=== PATIENT | female | born 2000 | race Caucasian/White ===

== ENCOUNTER 2019-06-11 23:58 | Emergency (ER) | payer OTHER ==
[2019-06-12 00:18] VITALS: BP 131/80; PULSE 52; TEMP 98.2; BMI 18.8
--- NOTE | 2019-06-12 00:37 | PDOC ---
History of Present Illness - General Chief Complaint: Injury Stated Complaint: LACERATION TO RIGHT FOOT Time Seen by Provider: 06/12/19 00:22 History Source: Patient Exam Limitations: No Limitations - History of Present Illness Initial Comments: 06/12/19 00:37 This is a 19-year-old female who cut the lateral aspect of her right ankle while taking out the garbage. Patient that there is something sharp in the bag of garbage that it cannot hurt. Patient otherwise is healthy and her immunizations are up-to-date. Patient denies any other injuries. Allergies: as per nursing notes Past Medical History: none Social history: Lives with family. No smoking. No alcohol. No illicit drugs. Surgical history: None General: No fevers or chills, no weakness, no weight loss HEENT: No change in vision. No sore throat,. No ear pain CardioVascular: no chest discomfort. No shortness of breath Respiratory:No cough, or wheezing. Gastrointestinal: no nausea, vomiting, diarrhea or constipation, No rectal bleeding Genitourinary: No dysuria, hematuria, or frequency Musculoskeletal: No joint or muscle pain or swelling, plus laceration right ankle Neurologic: No headache, vertigo, dizziness or loss of consciousness Psychiatric: nor depression Skin: No rashes or easy bruising Endocrine: no increased thirst or abnormal weight change Allergic: no skin or latex allergy All other systems reviewed and normal GENERAL: The patient is awake, alert, and fully oriented, in no acute distress. HEAD: Normal with no signs of trauma. EYES: Pupils equal, round and reactive to light, extraocular movements intact, sclera anicteric, conjunctiva clear. EXTREMITIES:atraumatic, Normal range of motion, no edema. Right ankle there is approximately a 2 cm laceration over the lateral aspect of the ankle. Neurovascular is intact there is some small amount of bleeding NEUROLOGICAL: Normal speech, normal gait. PSYCH: Normal mood, normal affect. SKIN: Warm, Dry, normal turgor, no rashes or lesions noted. Procedure note laceration repair. Laceration was anesthetized with 1% lidocaine no epinephrine Laceration was cleaned with peroxide and saline. .Laceration was closed with 6 sutures of 4-0 Ethilon bacitracin and sterile dressing were applied patient tolerated well Past History - Past Medical History Allergies/Adverse Reactions: Allergies Allergy/AdvReac Type Severity Reaction Status Date / Time amoxicillin Allergy Verified 06/12/19 00:09 Home Medications: Ambulatory Orders Norethindrone-E.estradiol-Iron [Blisovi Fe 1.5-30 Tablet] 1 each PO DAILY COPD: No - Immunization History Immunization Up to Date: Yes - Psycho Social/Smoking Cessation Hx Smoking History: Never smoked Have you smoked in the past 12 months: No Information on smoking cessation initiated: No Hx Alcohol Use: No Drug/Substance Use Hx: No Substance Use Type: Alcohol *Physical Exam - Vital Signs Last Vital Signs Temp Pulse Resp BP Pulse Ox 98.2 F 52 L 16 131/80 99 06/12/19 00:10 06/12/19 00:10 06/12/19 00:10 06/12/19 00:10 06/12/19 00:10 Discharge - Discharge Information Problems reviewed: Yes Clinical Impression/Diagnosis: Laceration of right foot Qualifiers: Encounter type: initial encounter Qualified Code(s): S91.311A - Laceration without foreign body, right foot, initial encounter Condition: Stable Disposition: HOME - Admission No - Follow up/Referral - Patient Discharge Instructions Patient Printed Discharge Instructions: DI for Laceration Repair, DI for Laceration Repair -- Simple Additional Instructions: Suture removal in 1 week. Wash the laceration once a day with some peroxide reapply the bacitracin and a Band-Aid. Keep covered with a Band-Aid and some extra tape to support the laceration when playing soccer return to the emergency department immediately with ANY new, persistent or worsening symptoms. Continue any medications as previously prescribed by your physician. You should follow up with your primary doctor as soon as possible regarding today's emergency department visit. . Please make sure your doctor reviews the results of your emergency evaluation. Thank you for coming to the Emergency Department today for your care. It was a pleasure to see you today. Please note that your evaluation is INCOMPLETE until you follow-up with your doctor. . - Post Discharge Activity
== END 2019-06-12 00:42 | disposition home or self-care (01) ==
LOC: FER 23:58
PROC: 0HQMXZZ Repair Right Foot Skin, External Approach (ICD-10-PCS; principal; 2019-06-11)
DX: S91.311A Laceration without foreign body, right foot, initial encounter (principal); W22.8XXA Striking against or struck by other objects, initial encounter; Y93.89 Activity, other specified; Y92.098 Other place in other non-institutional residence as the place of occurrence of the external cause; Z88.8 Allergy status to other drugs, medicaments and biological substances
CPT/HCPCS: 99281-25